=== PATIENT | female | born 1960 | race Caucasian/White ===

== ENCOUNTER → 2017-03-20 | Outpatient (CLI) | payer OTHER | LOC: FIMAGING 15:47 | PROVIDERS: ATTEND Obstetrics & Gynecology Gynecology | DX: Z12.31 Encounter for screening mammogram for malignant neoplasm of breast (principal); Z80.3 Family history of malignant neoplasm of breast | CPT/HCPCS: G0202 ==

== ENCOUNTER 2018-08-15 14:49 | Emergency (ER) | payer OTHER ==
[2018-08-15 14:59] VITALS: BP 139/69
--- NOTE | 2018-08-15 15:22 | EDPHY ---
H & P Smoking Status: Never smoked Time Seen by Provider: 08/15/18 15:20 HPI/ROS: CLINICAL IMPRESSION: Left distal radius fracture ASSESSMENT/PLAN: 57-year-old female presents to the emergency department after falling on an outstretched left hand when she fell down 2 steps just prior to arrival. Patient has swelling to the distal left wrist with no obvious deformity. Distal neurovascular exam intact, no open wounds. X-rays read and interpreted by myself indicate a closed nondisplaced distal buckle fracture of the radius. This does not appear to affect the intra-articular surface. Patient was placed in a sugar term forearm splint and sling. Orthopedic referral given, rice treatment discussed, warning signs return to ER sooner outlined and discharge. DIFFERENTIAL DX: Differential diagnosis includes but not limited to scaphoid fracture, distal radius and ulna fracture, wrist sprain, neurovascular injury ED PROCEDURES: Procedure: Splint placement. A left forearm sugar-tong splint and sling was applied by medical laboratory technician, supervised by myself. After application of the splint I returned and re-examined the patient. The splint was adequately immobilizing the joint and distal to the splint the patient's circulation and sensation was intact. ED COURSE: CHIEF COMPLAINT: Left wrist and hand pain HPI: 57-year-old female presents to the emergency department with acute left wrist pain after she fell down 2 steps landing on an outstretched hand. She is right- hand dominant. She has no open wounds. No reported numbness or loss of sensation to the hand or fingers. No elbow pain. She took 2 ibuprofen and applied ice prior to arrival. PAST MEDICAL HISTORY: None reported Pertinent Past Surgical History: No prior Ortho surgery Social History: Here with her significant other REVIEW OF SYSTEMS: All other systems negative Constitutional: No fever, no chills Musculoskeletal: No deformity, + joint pain Skin: No rashes, color change or open wounds. Neurological: No sensory loss or weakness. PHYSICAL EXAM: General Appearance: Alert, oriented, appropriate for age, cooperative, NAD, well hydrated, non-toxic appearing, VSS, no hypoxia. Neurological: Alert and oriented x 3, normal sensation and strength of extremities Skin: Warm, dry, no rashes, no nodules on palpation. Musculoskeletal: Swelling noted to the distal radius and ulna on the left wrist. Tender over the left scaphoid. Distal neurovascular exam intact. No open wounds. No elbow pain. MEDICAL DECISION MAKING: Patient was seen independently.Secondary supervising physician at time of evaluation was Dr. Richard. Diagnosis: Closed, nondisplaced Distal left radius fracture. New, requires workup Summary: See assessment and plan for summary of ED visit Independent visualization of images, tracing, or specimens yes. Patient Progress stable. (Steve Calderon) Constitutional: Initial Vital Signs Temperature (C) 36.3 C 08/15/18 14:54 Heart Rate 54 L 08/15/18 14:54 Respiratory Rate 16 08/15/18 14:54 Blood Pressure 139/69 H 08/15/18 14:54 O2 Sat (%) 97 08/15/18 14:54 O2 Delivery Mode Room Air Allergies/Adverse Reactions: No Known Allergies Allergy (Verified 08/15/18 14:59) Home Medications: Medication Instructions Recorded NK [No Known Home Meds] 04/12/18 MDM/Departure - [facility] Imaging: I viewed and interpreted images myself - [facility] ED Course/Re-evaluation: The patient was evaluated and managed by the Physician Urban Planning Professor. My co- signature indicates that I have reviewed this chart and I agree with the findings and plan of care as documented. I am the secondary supervising physician. (Mirella Richard) - Depart Disposition: Home, Routine, Self-Care Clinical Impression: Distal radius fracture, left Condition: Good Instructions: Wrist Fracture in Adults (ED) Additional Instructions: DISCHARGE INSTRUCTIONS FROM YOUR DOCTOR Thank you for visiting our emergency department today. Please keep in mind that discharge from the emergency department does not mean that there is nothing wrong - it simply means that we have not identified an emergency condition that requires further evaluation or treatment in the hospital. You should always plan to follow up with primary care for re-evaluation of your condition in the next 2-3 days. If you have been referred to a specialist, please call as soon as possible (today or tomorrow) to schedule your follow up appointment at the appropriate time. You appear to have a mild buckle fracture of the distal left radius. A splint was placed today. You need to see an orthopedic provider. Referral was given. Rest and elevate the affected extremity as much as possible. Ice the affected areas 20 min on, 20 min off for the next several days. Please use Tylenol or ibuprofen over the counter in appropriate doses as outlined on your discharge papers. Take ibuprofen with food and a large glass of water.Return to the emergency department for worsening pain, loss of sensation to her hand or fingers, fevers or any other concerns. People present with illnesses and injuries in different ways, and it is always possible that we have missed something. You may always return for re-evaluation if symptoms worsen or if they are not improving or if you develop new/different symptoms. Again, thank you for choosing our emergency department. We hope that you feel better. Referrals: Danay Garcia MD [Primary Care Provider] - As per Instructions Abilio Segura MD [Medical Doctor] - As per Instructions
== END 2018-08-15 16:42 | disposition home or self-care (01) ==
PROC: 2W3DX1Z Immobilization of Left Lower Arm using Splint (ICD-10-PCS; principal; 2018-08-15)
DX: S52.592A Other fractures of lower end of left radius, initial encounter for closed fracture (principal); W10.9XXA Fall (on) (from) unspecified stairs and steps, initial encounter; Y92.9 Unspecified place or not applicable; Y93.9 Activity, unspecified; Y99.9 Unspecified external cause status
CPT/HCPCS: A4565